=== PATIENT | female | born 1980 | race Caucasian/White ===

== ENCOUNTER 2017-09-25 22:02 | Emergency (ER) | payer OTHER ==
[~2017-09-25] VITALS: Ht 160 cm; Wt 57.8 kg
[2017-09-25 22:58] LABS: CLARITY,URINE CLEAR (Clear); COLOR,URINE YELLOW (Yellow); GLUCOSE, URINE NEGATIVE (Neg); KETONES,URINE 15 mg/dl (Neg); LEUKOCYTE ESTERASE ,URINE TRACE (Neg); NITRITES, URINE NEGATIVE (Neg); OCCULT BLOOD,URINE SMALL (Neg); PROTEIN,URINE NEGATIVE (Neg); UROBILINOGEN,URINE 0.2 E.U/dL (0.2-1.0)
[2017-09-25 23:00] LABS: BASOPHILS % (AUTO) 0.3 % (0-1); EOSINOPHILS # (AUTO) 0.2 X10'3 (0-0.9); EOSINOPHILS % (AUTO) 2.5 % (0-6); HEMATOCRIT 32.1 % (35.0-45.0); LYMPHOCYTES # (AUTO) 1.9 X10'3 (1.1-4.8); LYMPHOCYTES % (AUTO) 25.9 % (21-51); MEAN CORPUSCULAR HEMOGLOBIN 29.3 PG (27.0-31.0); MEAN CORPUSCULAR HGB CONC 34.3 % (33.0-36.5); MEAN CORPUSCULAR VOLUME 85.4 FL (78-98); MEAN PLATELET VOLUME 8.3 FL (7.4-10.4); MONOCYTES # (AUTO) 0.5 X10'3 (0-0.9); MONOCYTES % (AUTO) 7.2 % (2-12); NEUTROPHILS # (AUTO) 4.8 X10'3 (1.8-7.7); NEUTROPHILS % (AUTO) 64.1 % (42-75); PLATELET COUNT 420 X10'3 (140-440); RED BLOOD COUNT 3.76 X10'6 (4.20-5.60); RED CELL DISTRIBUTION WIDTH 17.2 % (11.5-14.5); WHITE BLOOD COUNT 7.5 X10'3 (4.5-11.0)
[2017-09-25 23:01] LABS: UA COLLECTION TYPE CLN CATCH MIDSTREAM
[2017-09-25] MEDS ORDERED: ketorolac trometh. 30mg/ml inj. IV ONE (23:05)
[2017-09-25] MEDS ORDERED: ondansetron/PF 4mg/2ml inj IV ONE (23:05)
[2017-09-25] MEDS ORDERED: morphine 4 MG/ML inj SYRINge IV ONE (23:05)
[2017-09-25] MEDS ORDERED: normal saline 1000ML IV soln IVB ONE (23:05)
[2017-09-25 23:08] LABS: PROTHROMBIN TIME 10.2 SECONDS (9.0-12.0)
[2017-09-25 23:08] LABS: BACTERIA,URINE FEW /HPF (Neg); MUCUS STRANDS FEW /LPF (Neg); RBC,URINE 0-2 /HPF (0-2); SQUAMOUS EPITHELIAL CELL,UR MODERATE /LPF (FEW)
[2017-09-25 23:13] LABS: ALANINE AMINOTRANSFERASE 22 U/L (12-78); ALBUMIN 3.8 G/DL (3.4-5.0); ALBUMIN/GLOBULIN RATIO 1.1 (1.1-1.5); ALKALINE PHOSPHATASE 55 IU/L (46-116); ANION GAP 9 (8-16); ASPARTATE AMINO TRANSFERASE 20 U/L (10-37); BILIRUBIN,TOTAL 0.9 MG/DL (0.1-1.0); BLOOD UREA NITROGEN 12 MG/DL (7-18); BUN/CREATININE RATIO 18.2 (6.6-38.0); CALCIUM 8.3 MG/DL (8.5-10.1); CHLORIDE 107 MMOL/L (99-107); CREATININE 0.66 MG/DL (0.40-0.90); GLUCOSE 97 MG/DL (70-104); POTASSIUM 3.7 MMOL/L (3.5-5.1); SODIUM 142 MMOL/L (135-145); TOTAL CARBON DIOXIDE 25.6 MMOL/L (24-32); TOTAL PROTEIN 7.3 G/DL (6.4-8.2); eGFR > 90 ML/MIN
[2017-09-25 23:16] LABS: URINE HCG NEGATIVE (NEG)
[2017-09-26] MEDS ORDERED: IBUP-1984 PO (00:16)
[2017-09-26] MEDS ORDERED: HYDR-569 PO (00:16)
[2017-09-26] MEDS ORDERED: CIPR-259 PO (00:16)
[2017-09-26 00:25] VITALS: BP 116/76
== END 2017-09-26 00:28 | disposition home or self-care (01) ==
LOC: ER 22:03
DX: N83.209 Unspecified ovarian cyst, unspecified side (principal); N39.0 Urinary tract infection, site not specified
CPT/HCPCS: 36415; 76856; 80053; 81001; 81025; 85025; 85610; 87088; 96361; 96374; 96375; 99285; J1885; J2270; J2405; J7030

== ENCOUNTER 2017-12-24 17:57 | Emergency (ER) | payer OTHER ==
[~2017-12-24] VITALS: Ht 160 cm; Wt 54.5 kg
[~2017-12-24 17:57] MED LIST: HYDR-569 PO
[2017-12-24 19:10] LABS: BASOPHILS % (AUTO) 0.6 % (0-1); EOSINOPHILS # (AUTO) 0.1 X10'3 (0-0.9); EOSINOPHILS % (AUTO) 2.5 % (0-6); HEMATOCRIT 36.1 % (35.0-45.0); HEMOGLOBIN 12.4 g/dl (12.0-16.0); LYMPHOCYTES # (AUTO) 1.5 X10'3 (1.1-4.8); MEAN CORPUSCULAR HEMOGLOBIN 30.3 PG (27.0-31.0); MEAN CORPUSCULAR HGB CONC 34.3 % (33.0-36.5); MEAN CORPUSCULAR VOLUME 88.4 FL (78-98); MEAN PLATELET VOLUME 8.2 FL (7.4-10.4); MONOCYTES # (AUTO) 0.3 X10'3 (0-0.9); NEUTROPHILS # (AUTO) 2.7 X10'3 (1.8-7.7); NEUTROPHILS % (AUTO) 57.9 % (42-75); PLATELET COUNT 418 X10'3 (140-440); RED BLOOD COUNT 4.09 X10'6 (4.20-5.60); RED CELL DISTRIBUTION WIDTH 14.6 % (11.5-14.5); WHITE BLOOD COUNT 4.7 X10'3 (4.5-11.0)
[2017-12-24 19:22] LABS: URINE HCG NEGATIVE (NEG)
[2017-12-24 19:25] LABS: ALANINE AMINOTRANSFERASE 25 U/L (12-78); ALBUMIN/GLOBULIN RATIO 1.3 (1.1-1.5); ALKALINE PHOSPHATASE 45 IU/L (46-116); ANION GAP 9 (8-16); ASPARTATE AMINO TRANSFERASE 17 U/L (10-37); BILIRUBIN,TOTAL 1.2 MG/DL (0.1-1.0); BLOOD UREA NITROGEN 13 MG/DL (7-18); BUN/CREATININE RATIO 19.1 (6.6-38.0); CALCIUM 8.9 MG/DL (8.5-10.1); CHLORIDE 105 MMOL/L (99-107); CREATININE 0.68 MG/DL (0.40-0.90); GLUCOSE 91 MG/DL (70-104); POTASSIUM 3.5 MMOL/L (3.5-5.1); SODIUM 138 MMOL/L (135-145); TOTAL CARBON DIOXIDE 24.2 MMOL/L (24-32); TOTAL PROTEIN 7.2 G/DL (6.4-8.2); eGFR > 90 ML/MIN
[2017-12-24 19:55] VITALS: BP 146/87
[2017-12-24 20:15] LABS: OCCULT BLOOD STOOL NEGATIVE (Neg)
== END 2017-12-24 19:56 | disposition home or self-care (01) ==
LOC: ER 17:57
DX: K92.2 Gastrointestinal hemorrhage, unspecified (principal); I10 Essential (primary) hypertension; F41.9 Anxiety disorder, unspecified
CPT/HCPCS: 36415; 80053; 81025; 82272; 85025; 99284

== ENCOUNTER 2018-02-16 05:27 | Emergency (ER) | payer MEDICAID, OTHER ==
[~2018-02-16] VITALS: Ht 160 cm; Wt 55.0 kg
[~2018-02-16 05:27] MED LIST changes: +HYDR-4383 PO; -HYDR-569 PO
[2018-02-16] MEDS ORDERED: morphine 4 MG/ML inj SYRINge IV PRN (05:50)
[2018-02-16] MEDS ORDERED: ondansetron/PF 4mg/2ml inj IV ONE (05:50)
[2018-02-16] MEDS ORDERED: ketorolac trometh. 30mg/ml inj. IV ONE (05:50)
[2018-02-16] MEDS ORDERED: normal saline 1000ML IV soln IVB ONE ×2 (05:50→07:55)
[2018-02-16 06:07] LABS: BASOPHILS % (AUTO) 0 % (0-1); EOSINOPHILS % (AUTO) 0.3 % (0-6); HEMATOCRIT 42.3 % (35.0-45.0); HEMOGLOBIN 14.1 g/dl (12.0-16.0); LYMPHOCYTES # (AUTO) 0.4 X10'3 (1.1-4.8); LYMPHOCYTES % (AUTO) 2.7 % (21-51); MEAN CORPUSCULAR HEMOGLOBIN 30.2 PG (27.0-31.0); MEAN CORPUSCULAR HGB CONC 33.2 % (33.0-36.5); MEAN CORPUSCULAR VOLUME 90.9 FL (78-98); MEAN PLATELET VOLUME 8.2 FL (7.4-10.4); MONOCYTES # (AUTO) 0.3 X10'3 (0-0.9); MONOCYTES % (AUTO) 2.3 % (2-12); NEUTROPHILS # (AUTO) 14.2 X10'3 (1.8-7.7); NEUTROPHILS % (AUTO) 94.7 % (42-75); PLATELET COUNT 451 X10'3 (140-440); RED BLOOD COUNT 4.66 X10'6 (4.20-5.60); RED CELL DISTRIBUTION WIDTH 14.1 % (11.5-14.5)
[2018-02-16 06:17] LABS: ALANINE AMINOTRANSFERASE 22 U/L (12-78); ALBUMIN 4.5 G/DL (3.4-5.0); ALBUMIN/GLOBULIN RATIO 1.2 (1.1-1.5); ALKALINE PHOSPHATASE 54 IU/L (46-116); ANION GAP 14 (8-16); ASPARTATE AMINO TRANSFERASE 17 U/L (10-37); BILIRUBIN,TOTAL 1.1 MG/DL (0.1-1.0); BLOOD UREA NITROGEN 15 MG/DL (7-18); BUN/CREATININE RATIO 22.1 (6.6-38.0); CALCIUM 8.7 MG/DL (8.5-10.1); CHLORIDE 104 MMOL/L (99-107); CREATININE 0.68 MG/DL (0.40-0.90); GLUCOSE 92 MG/DL (70-104); LIPASE 85 U/L (73-393); POTASSIUM 3.4 MMOL/L (3.5-5.1); SODIUM 140 MMOL/L (135-145); TOTAL CARBON DIOXIDE 22.4 MMOL/L (24-32); TOTAL PROTEIN 8.4 G/DL (6.4-8.2); eGFR > 90 ML/MIN
[2018-02-16 06:18] LABS: URINE HCG NEGATIVE (NEG)
[2018-02-16 06:19] LABS: PROTHROMBIN TIME 10.6 SECONDS (9.0-12.0)
[2018-02-16 06:21] LABS: CLARITY,URINE CLEAR (Clear); COLOR,URINE YELLOW (Yellow); GLUCOSE, URINE NEGATIVE (Neg); KETONES,URINE >=80 mg/dl (Neg); LEUKOCYTE ESTERASE ,URINE NEGATIVE (Neg); NITRITES, URINE NEGATIVE (Neg); OCCULT BLOOD,URINE SMALL (Neg); PH,URINE 5.5 (4.8-8.0); PROTEIN,URINE NEGATIVE (Neg); UROBILINOGEN,URINE 0.2 E.U/dL (0.2-1.0)
[2018-02-16 06:40] LABS: UA COLLECTION TYPE CLN CATCH MIDSTREAM
[2018-02-16 07:10] LABS: BACTERIA,URINE FEW /HPF (Neg); MUCUS STRANDS FEW /LPF (Neg); RBC,URINE 0-2 /HPF (0-2); SQUAMOUS EPITHELIAL CELL,UR MANY /LPF (FEW); WBC,URINE 0-4 /HPF (0-4)
[2018-02-16] MEDS ORDERED: ONDA8TAB13 PO (07:54)
[2018-02-16] MEDS ORDERED: PANT-47 PO (07:54)
[2018-02-16] MEDS ORDERED: proCHLORperazine 10 MG/2 ml inj IV ONE (07:55)
[2018-02-16] MEDS ORDERED: pantoprazole 40 MG vial IV ONE (07:55)
[2018-02-16 08:03] VITALS: BP 123/67
== END 2018-02-16 08:41 | disposition home or self-care (01) ==
LOC: ER 05:27
DX: E86.0 Dehydration (principal); K52.89 Other specified noninfective gastroenteritis and colitis; R10.11 Right upper quadrant pain; R10.13 Epigastric pain; I10 Essential (primary) hypertension; Z98.890 Other specified postprocedural states; Z79.899 Other long term (current) drug therapy
CPT/HCPCS: 36415; 76700; 80053; 81001; 81025; 83690; 85025; 85610; 96361; 96374; 96375; 99285; C9113; J0780; J1885; J2270; J2405

== ENCOUNTER 2018-05-26 00:48 | Emergency (ER) | payer MEDICAID, OTHER ==
[~2018-05-26] VITALS: Ht 157.5 cm; Wt 54.0 kg
[~2018-05-26 00:48] MED LIST changes: +ONDA8TAB13 PO; +PANT-47 PO
[2018-05-26] MEDS ORDERED: diphenhydrAMINE 25 MG/10 ML UD oral solution PO ONE (01:45)
[2018-05-26] MEDS ORDERED: dexamethasone 0.5 mg/5ml unit-dose oral solution PO SCH (01:45)
[2018-05-26] MEDS ORDERED: naproxen 500mg tablet PO ONE (01:50)
[2018-05-26] MEDS ORDERED: penicillin G benzathine 1.2 million unit/2ml syringe IM ONE (01:50)
[2018-05-26] MEDS ORDERED: dexamethasone 4mg tablet PO SCH (01:53)
[2018-05-26 02:43] VITALS: BP 119/70
== END 2018-05-26 02:50 | disposition home or self-care (01) ==
LOC: ER 00:49
DX: J02.0 Streptococcal pharyngitis (principal); H92.03 Otalgia, bilateral; R09.81 Nasal congestion; R51 Headache; R50.9 Fever, unspecified; I10 Essential (primary) hypertension; Z79.899 Other long term (current) drug therapy
CPT/HCPCS: 87880; 96372; 99284; J0561; J8540; Q0163

== ENCOUNTER 2018-06-30 22:26 | Emergency (ER) | payer OTHER ==
[~2018-06-30] VITALS: Ht 160 cm; Wt 0.6 kg
[2018-06-30 22:40] VITALS: BP 117/74
[2018-06-30] MEDS ORDERED: HYDR-4353 PO (23:12)
== END 2018-06-30 23:21 | disposition home or self-care (01) ==
LOC: ER 22:27
DX: N80.9 Endometriosis, unspecified (principal); R10.31 Right lower quadrant pain; I10 Essential (primary) hypertension; Z98.890 Other specified postprocedural states; Z79.899 Other long term (current) drug therapy
CPT/HCPCS: 99283

== ENCOUNTER 2018-08-12 18:59 | Emergency (ER) | payer OTHER ==
[~2018-08-12] VITALS: Ht 157.5 cm; Wt 65.3 kg
[2018-08-12 19:17] VITALS: BP 147/62
[2018-08-12 19:48] LABS: CLARITY,URINE SLIGHTLY CLOUDY (Clear); COLOR,URINE YELLOW (Yellow); GLUCOSE, URINE NEGATIVE (Neg); KETONES,URINE NEGATIVE (Neg); LEUKOCYTE ESTERASE ,URINE NEGATIVE (Neg); NITRITES, URINE NEGATIVE (Neg); OCCULT BLOOD,URINE NEGATIVE (Neg); PROTEIN,URINE NEGATIVE (Neg); UROBILINOGEN,URINE 0.2 E.U/dL (0.2-1.0)
[2018-08-12 19:49] LABS: UA COLLECTION TYPE CLN CATCH MIDSTREAM
[2018-08-12 19:51] LABS: BASOPHILS # (AUTO) 0.1 X10'3 (0-0.2); EOSINOPHILS # (AUTO) 0.4 X10'3 (0-0.9); EOSINOPHILS % (AUTO) 5.1 % (0-6); HEMATOCRIT 34.9 % (35.0-45.0); HEMOGLOBIN 11.8 g/dl (12.0-16.0); LYMPHOCYTES # (AUTO) 1.7 X10'3 (1.1-4.8); LYMPHOCYTES % (AUTO) 22.9 % (21-51); MEAN CORPUSCULAR HEMOGLOBIN 30.9 PG (27.0-31.0); MEAN CORPUSCULAR HGB CONC 33.7 g/dL (33.0-36.5); MEAN CORPUSCULAR VOLUME 91.5 FL (78-98); MEAN PLATELET VOLUME 7.7 FL (7.4-10.4); MONOCYTES # (AUTO) 0.5 X10'3 (0-0.9); MONOCYTES % (AUTO) 6.9 % (2-12); NEUTROPHILS # (AUTO) 4.7 X10'3 (1.8-7.7); NEUTROPHILS % (AUTO) 64.1 % (42-75); PLATELET COUNT 502 X10'3 (140-440); RED BLOOD COUNT 3.81 X10'6 (4.20-5.60); RED CELL DISTRIBUTION WIDTH 13.4 % (11.5-14.5); WHITE BLOOD COUNT 7.3 X10'3 (4.5-11.0)
[2018-08-12 19:52] LABS: URINE HCG NEGATIVE (NEG)
[2018-08-12 19:55] LABS: ALANINE AMINOTRANSFERASE 20 U/L (12-78); ALBUMIN 3.7 G/DL (3.4-5.0); ALBUMIN/GLOBULIN RATIO 1.1 (1.1-1.5); ALKALINE PHOSPHATASE 57 IU/L (46-116); ANION GAP 8 (8-16); ASPARTATE AMINO TRANSFERASE 11 U/L (10-37); BILIRUBIN,TOTAL 0.3 MG/DL (0.1-1.0); BLOOD UREA NITROGEN 15 MG/DL (7-18); CALCIUM 9.1 MG/DL (8.5-10.1); CHLORIDE 103 MMOL/L (99-107); GLUCOSE 64 MG/DL (70-104); POTASSIUM 3.6 MMOL/L (3.5-5.1); SODIUM 139 MMOL/L (135-145); TOTAL CARBON DIOXIDE 27.6 MMOL/L (24-32); TOTAL PROTEIN 7.2 G/DL (6.4-8.2); eGFR > 90 ML/MIN
[2018-08-12 20:06] LABS: BACTERIA,URINE FEW /HPF (Neg); RBC,URINE NONE SEEN /HPF (0-2); SQUAMOUS EPITHELIAL CELL,UR MODERATE /LPF (FEW); WBC,URINE 0-4 /HPF (0-4)
[2018-08-12] MEDS ORDERED: ketorolac tromethamine 15mg/ml inj. IM ONE (22:05)
== END 2018-08-12 23:05 | disposition home or self-care (01) ==
LOC: ER 18:59
DX: N93.8 Other specified abnormal uterine and vaginal bleeding (principal); I10 Essential (primary) hypertension; Z98.890 Other specified postprocedural states; Z79.899 Other long term (current) drug therapy
CPT/HCPCS: 36415; 80053; 81001; 81025; 85025; 85610; 96372; 99283; J1885

== ENCOUNTER 2018-10-20 22:42 | Emergency (ER) | payer OTHER ==
[~2018-10-20] VITALS: Ht 160 cm; Wt 58.9 kg
[2018-10-20 22:50] VITALS: BP 136/97
--- NOTE | 2018-10-20 23:50 | NUR ---
pt appears in nad while sitting on [address] playing on cell phone
--- NOTE | 2018-10-21 00:18 | NUR ---
DURING CONVERSATION, PT STATES "MY REFILL FOR MY KLONOPIN IS ON EITHER SATURDAY OR SATURDAY. MY WATER BOTTLE SPILLED IN MY PURSE AND RUINED THEM. I JUST FEEL SO ANXIOUS AND I CANT SLEEP AND MY HEART IS RACING AND I JUST NEED SOMETHING TO HELP ME THROUGH THE NEXT FEW DAYS."
[2018-10-21] MEDS ORDERED: CLON-528 PO (00:47)
== END 2018-10-21 00:57 | disposition home or self-care (01) ==
LOC: ER 22:43
DX: F41.9 Anxiety disorder, unspecified (principal); Z76.0 Encounter for issue of repeat prescription; R00.0 Tachycardia, unspecified; I10 Essential (primary) hypertension; Z79.899 Other long term (current) drug therapy; Z98.890 Other specified postprocedural states
CPT/HCPCS: 99283; 99284

== ENCOUNTER 2019-01-05 21:28 | Emergency (ER) | payer OTHER ==
[~2019-01-05] VITALS: Ht 160 cm; Wt 58.6 kg
[~2019-01-05 21:28] MED LIST changes: +CLON-528 PO
[2019-01-05] MEDS ORDERED: PENI500T2 PO (23:41)
[2019-01-06 00:05] VITALS: BP 119/64
== END 2019-01-06 00:06 | disposition home or self-care (01) ==
LOC: ER 21:28
DX: J02.0 Streptococcal pharyngitis (principal); B95.0 Streptococcus, group A, as the cause of diseases classified elsewhere; I10 Essential (primary) hypertension; F41.9 Anxiety disorder, unspecified; Z86.69 Personal history of other diseases of the nervous system and sense organs; Z98.890 Other specified postprocedural states; Z79.899 Other long term (current) drug therapy
CPT/HCPCS: 87880; 99283

== ENCOUNTER 2019-12-12 20:28 | Emergency (ER) | payer MEDICAID, OTHER ==
[~2019-12-12] VITALS: Ht 160 cm; Wt 69.2 kg
[2019-12-12 21:09] LABS: ALANINE AMINOTRANSFERASE 23 U/L (12-78); ALBUMIN 4.3 G/DL (3.4-5.0); ALBUMIN/GLOBULIN RATIO 1.2 (1.1-1.5); ALKALINE PHOSPHATASE 52 IU/L (46-116); ANION GAP 10 (8-16); ASPARTATE AMINO TRANSFERASE 15 U/L (10-37); BILIRUBIN,TOTAL 0.6 MG/DL (0.1-1.0); BLOOD UREA NITROGEN 11 MG/DL (7-18); BUN/CREATININE RATIO 13.6 (6.6-38.0); CHLORIDE 104 MMOL/L (99-107); CREATININE 0.81 MG/DL (0.40-0.90); GLUCOSE 95 MG/DL (70-104); LIPASE 145 U/L (73-393); POTASSIUM 3.8 MMOL/L (3.5-5.1); SODIUM 141 MMOL/L (135-145); TOTAL CARBON DIOXIDE 26.8 MMOL/L (24-32); eGFR 80 ML/MIN
[2019-12-12 21:13] LABS: CLARITY,URINE CLEAR (Clear); COLOR,URINE STRAW (Yellow); GLUCOSE, URINE NEGATIVE (Neg); KETONES,URINE NEGATIVE (Neg); LEUKOCYTE ESTERASE ,URINE NEGATIVE (Neg); NITRITES, URINE NEGATIVE (Neg); OCCULT BLOOD,URINE TRACE-INTACT (Neg); PROTEIN,URINE NEGATIVE (Neg); UROBILINOGEN,URINE 0.2 E.U/dL (0.2-1.0)
[2019-12-12 21:15] LABS: UA COLLECTION TYPE CLN CATCH MIDSTREAM
[2019-12-12 21:16] LABS: URINE HCG NEGATIVE (NEG)
[2019-12-12 21:25] LABS: BACTERIA,URINE NONE SEEN /HPF (Neg); MUCUS STRANDS NONE SEEN /LPF (Neg); RBC,URINE 0-2 /HPF (0-2); SQUAMOUS EPITHELIAL CELL,UR FEW /LPF (FEW); WBC,URINE NONE SEEN /HPF (0-4)
[2019-12-12] MEDS ORDERED: ondansetron 4mg rapidly disintigrating tab PO ONE (22:05)
[2019-12-12] MEDS ORDERED: HYDROcodone/acetaminophen 5mg/325mg tablet PO ONE (22:05)
--- NOTE | 2019-12-12 22:45 | NUR ---
UPDATED SITE COORDINATOR ISABEL REGARDING PT'S LAB RE-DRAW ORDER FOR A PLATELET CLUMPER- LAVENDER AND BLUE TOP NEEDED.
[2019-12-12 23:41] LABS: BASOPHILS # (AUTO) 0.1 X10'3 (0-0.2); EOSINOPHILS # (AUTO) 0.4 X10'3 (0-0.9); LYMPHOCYTES # (AUTO) 2.5 X10'3 (1.1-4.8)
[2019-12-12 23:42] LABS: BASOPHILS % (AUTO) 0.7 % (0-1); EOSINOPHILS % (AUTO) 3.2 % (0-6); HEMATOCRIT 38.5 % (35.0-45.0); HEMOGLOBIN 12.7 g/dl (12.0-16.0); LYMPHOCYTES % (AUTO) 18.8 % (21-51); MEAN CORPUSCULAR HEMOGLOBIN 30.8 PG (27.0-31.0); MEAN CORPUSCULAR VOLUME 93.4 FL (78-98); MONOCYTES # (AUTO) 0.9 X10'3 (0-0.9); MONOCYTES % (AUTO) 6.7 % (2-12); NEUTROPHILS # (AUTO) 9.3 X10'3 (1.8-7.7); NEUTROPHILS % (AUTO) 70.6 % (42-75); RED BLOOD COUNT 4.12 X10'6 (4.20-5.60); RED CELL DISTRIBUTION WIDTH 13.7 % (11.5-14.5)
[2019-12-12] MEDS ORDERED: TRAM50TA2 PO (23:54)
[2019-12-12] MEDS ORDERED: ONDA4TAB6 PO (23:54)
[2019-12-13 00:12] LABS: WHITE BLOOD COUNT 11.3 X10'3 (4.5-11.0)
[2019-12-13 00:13] LABS: MEAN PLATELET VOLUME 7.6 FL (7.4-10.4); PLATELET COUNT 352 X10'3 (140-440)
[2019-12-13 00:32] VITALS: BP 121/70
== END 2019-12-13 00:34 | disposition home or self-care (01) ==
LOC: ER 20:28
DX: N83.201 Unspecified ovarian cyst, right side (principal); I10 Essential (primary) hypertension; F41.9 Anxiety disorder, unspecified; Z98.890 Other specified postprocedural states; Z79.899 Other long term (current) drug therapy
CPT/HCPCS: 36415; 74176; 80053; 81001; 81025; 83690; 85025; 99285

== ENCOUNTER 2020-04-14 02:56 | Emergency (ER) | payer MEDICAID, OTHER ==
[~2020-04-14] VITALS: Ht 160 cm; Wt 70.5 kg
[~2020-04-14 02:56] MED LIST changes: +ONDA4TAB6 PO
[2020-04-14 03:25] LABS: CLARITY,URINE CLEAR (Clear); COLOR,URINE YELLOW (Yellow); GLUCOSE, URINE NEGATIVE (Neg); KETONES,URINE NEGATIVE (Neg); LEUKOCYTE ESTERASE ,URINE NEGATIVE (Neg); NITRITES, URINE NEGATIVE (Neg); OCCULT BLOOD,URINE NEGATIVE (Neg); PROTEIN,URINE NEGATIVE (Neg); UROBILINOGEN,URINE 0.2 E.U/dL (0.2-1.0)
[2020-04-14 03:27] LABS: URINE HCG NEGATIVE (NEG)
[2020-04-14 03:28] LABS: UA COLLECTION TYPE CLN CATCH MIDSTREAM
[2020-04-14 03:31] VITALS: BP 127/79
== END 2020-04-14 03:36 | disposition home or self-care (01) ==
LOC: ER 02:57
DX: D25.9 Leiomyoma of uterus, unspecified (principal); R10.84 Generalized abdominal pain; R11.0 Nausea; R42 Dizziness and giddiness; R53.83 Other fatigue; I10 Essential (primary) hypertension; F41.9 Anxiety disorder, unspecified; Z86.2 Personal history of diseases of the blood and blood-forming organs and certain disorders involving the immune mechanism; Z98.890 Other specified postprocedural states; Z79.899 Other long term (current) drug therapy
CPT/HCPCS: 81003; 81025; 99283

== ENCOUNTER 2020-11-18 16:14 | Emergency (ER) | payer OTHER ==
[~2020-11-18] VITALS: Ht 160 cm; Wt 72.7 kg
[2020-11-18 17:09] VITALS: BP 121/75
== END 2020-11-18 19:33 | disposition left against medical advice (07) ==
LOC: ER 16:14
DX: R42 Dizziness and giddiness (principal); K08.89 Other specified disorders of teeth and supporting structures; Z53.21 Procedure and treatment not carried out due to patient leaving prior to being seen by health care provider

== ENCOUNTER 2021-06-12 19:36 | Emergency (ER) | payer OTHER ==
[~2021-06-12] VITALS: Ht 160 cm; Wt 66.7 kg
[2021-06-12 20:24] VITALS: BP 115/73
[2021-06-12 21:26] LABS: BASOPHILS % (AUTO) 0.4 % (0-1); EOSINOPHILS # (AUTO) 0.1 X10'3 (0-0.9); HEMOGLOBIN 12.8 g/dl (12.0-16.0); LYMPHOCYTES # (AUTO) 2.2 X10'3 (1.1-4.8); MEAN CORPUSCULAR HEMOGLOBIN 31.1 PG (27.0-31.0); MEAN CORPUSCULAR HGB CONC 33.6 g/dL (33.0-36.5); MEAN CORPUSCULAR VOLUME 92.4 FL (78-98); MEAN PLATELET VOLUME 10.9 FL (7.4-10.4); MONOCYTES # (AUTO) 0.7 X10'3 (0-0.9); MONOCYTES % (AUTO) 6.4 % (2-12); NEUTROPHILS # (AUTO) 7.6 X10'3 (1.8-7.7); NEUTROPHILS % (AUTO) 71.2 % (42-75); PLATELET COUNT 274 X10'3 (140-440); RED BLOOD COUNT 4.11 X10'6 (4.20-5.60); RED CELL DISTRIBUTION WIDTH 13.6 % (11.5-14.5); WHITE BLOOD COUNT 10.7 X10'3 (4.5-11.0)
[2021-06-12 21:28] LABS: CLARITY,URINE SLIGHTLY CLOUDY (Clear); COLOR,URINE YELLOW (Yellow); GLUCOSE, URINE NEGATIVE (Neg); KETONES,URINE NEGATIVE (Neg); LEUKOCYTE ESTERASE ,URINE NEGATIVE (Neg); NITRITES, URINE NEGATIVE (Neg); OCCULT BLOOD,URINE MODERATE (Neg); PROTEIN,URINE NEGATIVE (Neg); UROBILINOGEN,URINE 0.2 E.U/dL (0.2-1.0)
[2021-06-12 21:37] LABS: HCG SERUM QL NEGATIVE
[2021-06-12 21:41] LABS: UA COLLECTION TYPE CLN CATCH MIDSTREAM
[2021-06-12 21:43] LABS: BACTERIA,URINE FEW /HPF (Neg); CAL OXALATE CRYSTALS FEW /HPF (NEGATIVE); MUCUS STRANDS MODERATE /LPF (Neg); SQUAMOUS EPITHELIAL CELL,UR MANY /LPF (FEW); WBC,URINE 0-4 /HPF (0-4)
[2021-06-12 21:46] LABS: ALANINE AMINOTRANSFERASE 15 U/L (12-78); ALBUMIN 3.9 G/DL (3.4-5.0); ALBUMIN/GLOBULIN RATIO 1.2 (1.1-1.5); ALKALINE PHOSPHATASE 64 IU/L (46-116); ANION GAP 10 (8-16); BILIRUBIN,TOTAL 0.5 MG/DL (0.1-1.0); BLOOD UREA NITROGEN 12 MG/DL (7-18); BUN/CREATININE RATIO 17.9 (6.6-38.0); CHLORIDE 108 MMOL/L (99-107); CREATININE 0.67 MG/DL (0.40-0.90); GLUCOSE 100 MG/DL (70-104); LIPASE 59 U/L (73-393); SODIUM 142 MMOL/L (135-145); TOTAL CARBON DIOXIDE 23.7 MMOL/L (24-32); TOTAL PROTEIN 7.2 G/DL (6.4-8.2); eGFR > 90 ML/MIN
[2021-06-12 21:59] LABS: ASPARTATE AMINO TRANSFERASE 10 U/L (10-37)
[2021-06-12 22:29] LABS: LARGE PLATELETS FEW; PLATELET ESTIMATE NORMAL
== END 2021-06-12 23:28 | disposition home or self-care (01) ==
LOC: ER 19:38
DX: F41.9 Anxiety disorder, unspecified (principal); R19.7 Diarrhea, unspecified; R10.9 Unspecified abdominal pain; I10 Essential (primary) hypertension; G43.909 Migraine, unspecified, not intractable, without status migrainosus; Z86.2 Personal history of diseases of the blood and blood-forming organs and certain disorders involving the immune mechanism; Z79.899 Other long term (current) drug therapy
CPT/HCPCS: 36415; 80053; 81001; 83690; 84703; 85008; 85025; 99283